=== PATIENT | male | born 1995 | race Caucasian/White ===

== ENCOUNTER 2022-01-31 11:46 | Emergency (ER) | payer OTHER ==
[~2022-01-31] VITALS: Ht 182.9 cm; Wt 68.9 kg
[2022-01-31] MEDS ORDERED: CETIRIZINE HCL10 MG PO (16:33)
[2022-01-31] MEDS ORDERED: BETAMETHASONE D15 G3 TOP (16:33)
[2022-01-31] MEDS ORDERED: MEDROLPACK PO (16:33)
== END 2022-01-31 16:39 ==
LOC: ER 11:46
DX: L50.9 Urticaria, unspecified (principal)